=== PATIENT | male | born 1930 | race Caucasian/White ===

== ENCOUNTER 2016-10-07 07:27 | Day surgery (SDC) | payer OTHER ==
[2016-10-04 15:23] VITALS: BMI 22.7
[2016-10-07] MEDS ORDERED: PROPOFOL 20 ML ONE ×2 (08:04)
[2016-10-07 10:45] VITALS: TEMP 98.5
[2016-10-07 10:47] VITALS: BP 153/67; PULSE 52
--- NOTE | 2016-10-08 11:01 | PATH ---
Surgical Pathology Report Patient Name: JB HANSEN [facility]. Rec. #: [id number] /Age/Gender: 1930 (Age: 86) / M Account: [id number] Location: [facility]-ENDOSCOPY Taken: 10/07/2016 Received: 10/07/2016 Reported: 10/08/2016 Physicians: Uriel Bella M.D. Specimen(s) Received 45CM DISTAL DESCENDING COLON Clinical History Left lower quadrant pain, rule out colon cancer Obstructive mass distal descending colon Final Diagnosis COLON, DISTAL DESCENDING AT 45 CM, BIOPSY: MODERATELY DIFFERENTIATED ADENOCARCINOMA. Comment: This case was discussed with Dr. Bella on October 08, 2016. Due to the limited amount of lesional material present, evaluation of mismatch repair proteins will be deferred unless otherwise requested. Electronically Signed Moise Brunson M.D. Gross Description Received in formalin, labeled "45 cm distal descending colon" are 2 sierra, irregular portions of soft tissue measuring 0.2 and 0.3 cm. in greatest dimension. The specimens are submitted in toto in one cassette. 10/07/201610/07/2016
== END 2016-10-07 10:40 | disposition home or self-care (01) ==
LOC: FASU-ENDO 07:27
PROVIDERS: ATTEND Internal Medicine Gastroenterology
PROC: 3E0H8GC Introduction of Other Therapeutic Substance into Lower GI, Via Natural or Artificial Opening Endoscopic (ICD-10-PCS; 2016-10-07)
PROC: 0DBM8ZX Excision of Descending Colon, Via Natural or Artificial Opening Endoscopic, Diagnostic (ICD-10-PCS; principal; 2016-10-07 09:24)
DX: C18.6 Malignant neoplasm of descending colon (principal); R10.32 Left lower quadrant pain
CPT/HCPCS: 88305-TC

== ENCOUNTER 2017-06-08 07:10 | Day surgery (SDC) | payer OTHER ==
[2017-06-06 12:01] VITALS: BMI 21.9
[2017-06-08] MEDS ORDERED: PROPOFOL 20 ML ONE ×2 (07:14)
[2017-06-08] MEDS ORDERED: LIDOCAINE HCL/PF 2% SDV 5ML VIAL ONE (07:15)
[2017-06-08 09:22] VITALS: TEMP 98.2
[2017-06-08 10:17] VITALS: BP 112/56; PULSE 60
== END 2017-06-08 10:00 | disposition home or self-care (01) ==
LOC: FASU-ENDO 07:10
PROVIDERS: ATTEND Internal Medicine Gastroenterology
PROC: 0DJD8ZZ Inspection of Lower Intestinal Tract, Via Natural or Artificial Opening Endoscopic (ICD-10-PCS; principal; 2017-06-08 08:56)
DX: Z85.038 Personal history of other malignant neoplasm of large intestine (principal); Z98.0 Intestinal bypass and anastomosis status

== ENCOUNTER 2019-07-02 09:52 | Day surgery (SDC) | payer OTHER ==
[2019-06-28 18:05] VITALS: BMI 22.8
[2019-07-02 12:26] VITALS: TEMP 98
[2019-07-02 12:33] VITALS: PULSE 68
[2019-07-02 12:35] VITALS: BP 122/56
--- NOTE | 2019-07-02 16:02 | EKG ---
Test Reason : Blood Pressure : / mmHG Vent. 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
== END 2019-07-02 12:30 | disposition home or self-care (01) ==
LOC: FASU-ENDO 09:52
PROVIDERS: ATTEND Internal Medicine Gastroenterology
PROC: 0DJD8ZZ Inspection of Lower Intestinal Tract, Via Natural or Artificial Opening Endoscopic (ICD-10-PCS; principal; 2019-07-02 11:23)
DX: Z08 Encounter for follow-up examination after completed treatment for malignant neoplasm (principal); Z85.038 Personal history of other malignant neoplasm of large intestine; Z98.0 Intestinal bypass and anastomosis status
CPT/HCPCS: 93005; 93010